=== PATIENT | female | born 1985 | race Caucasian/White ===

== ENCOUNTER 2024-08-08 23:21 | Emergency (ER) | payer OTHER, SELFPAY ==
--- NOTE | ~2024-08-08 | XR_ITS ---
CLINICAL HISTORY: chin strike after fall 5 view mandible Comparison: None Findings: No acute fractures. The temporomandibular joints are intact. No sinus fluid. Mastoids are clear. No radiopaque foreign body. IMPRESSION: 1. No acute findings This document has been electronically signed by: Kashif Boswell MD on 08/09/2024 17:32:03
--- NOTE | 2024-08-08 22:30 | PC.NURSE ---
ems did not give report to t/w client came in on gurney looking around suspiciously while speaking to ems staff and security from [facility]. patient may have had pills (#5, confirmed with security margot) which appear to be xANAX 1MG ON PERSON and some drugs with a straw which security took away client at present seated in common area
--- NOTE | 2024-08-08 22:35 | ED_ITS ---
HPI - Psych General Chief Complaint: Psychiatric Symptoms Stated Complaint: over dose, opioids narcanned Time Seen by Provider: 08/09/24 16:47 Source: EMS Mode of arrival: EMS Limitations: other History of Present Illness ED Provider: Dr. Ana Laura Latham HPI Narrative: Patient comes to the emergency room via ambulance. We did not get EMS report. All we know is that patient is ?paranoid?. Patient is very paranoid and is unable to give any history, patient is stating that she is going to , that people are watching her, afraid that somebody is going to shoot her. Patient not making much sense. Patient complaining there are 2 mm in the [facility] pod and everybody spotting on her. Patient's seems scared. Patient mentioned briefly something about using cocaine yesterday? We can not get any significant history from the patient. Related Data Home Medications ?Medication ?Instructions ?Recorded ?Confirmed buprenorphine 2 mg-naloxone 0.5 mg 0.5 film sublingual DAILY 08/09/24 08/09/24 sublingual film lorazepam 0.5 mg tablet 0.5 mg PO TID PRN Anxiety 08/09/24 08/09/24 melatonin 10 mg tablet 10 mg PO BEDTIME PRN Sleep 08/09/24 08/09/24 zolpidem 10 mg tablet 10 mg PO BEDTIME PRN Insomnia 08/09/24 08/09/24 Allergies Allergy/AdvReac Type Severity Reaction Status Date / Time medroxyprogesterone Allergy Severe UTERINE Unverified 08/08/24 23:08 [From DEPO-PROVERA] REACTION naproxen [NAPROXEN] Allergy Severe SYNCOPY Unverified 08/08/24 23:08 Review of Systems 2 Review of Systems: Clearly paranoid, looks scared, unable to give any history Yes Other PMFSH Past Medical History Medical History (Updated 08/08/24 @ 23:18 by Ana Laura Latham MD) Paranoia Physical Exam 2 Vital Signs: Vital Signs: Last Vital Signs Temp 98.1 F 08/10/24 11:56 Pulse 72 08/10/24 11:56 Resp 16 08/10/24 11:56 BP 112/63 08/10/24 11:56 Pulse Ox 98 08/10/24 11:56 O2 Del Method Room Air 08/10/24 11:56 BMI result Body Mass Index 19.1 Const: Other: Appearance: Alert. Paranoid, anxious, not answering questions Eyes: Pupils equal, round and reactive to light. ENT: Pharynx normal. Neck: Normal inspection. Neck supple. No lymph nodes noted. No crepitus CVS: Normal heart rate and rhythm. Pulses normal. Normal S1 and S2 Respiratory: No respiratory distress. Breath sounds normal. No Wheezing. No rales Abdomen: Soft and nontender. No rigidity. No distention. Skin: Skin warm and dry. Normal skin color. Normal skin turgor. Extremities: No lower extremity edema. No Lacerations. No Rash Neuro: Moving all extremities. No slurred speech. CN 2 through 12 grossly intact Psych: Very anxious, paranoid, afraid of mirrors and cameras, not answering questions, pacing Course Course Course Narrative: On arrival, patient is very paranoid, we can not get much history of her. All of patient's labs pending Care team consult pt Patient is on a Section 12 Patient was given p.o. Haldol, lorazepam and Benadryl Reevaluation(s) Reevaluation #1: Dr. Aviles: I assumed care of this patient this morning. The patient is a 39-year-old woman who had presented after erratic behavior. She apparently seemed very paranoid. She has tested positive for cocaine. She has also tested positive for buprenorphine and lorazepam but she is prescribed both of these medications. She was apparently very sleepy today. Today she is much more awake and alert. She was re-evaluated by the care team. The care team clinician feels the patient is safe for discharge. I went to see the patient. She is awake and alert. She feels that she will be safe is she is discharged. She plans on going to her mother's house today. She has a PCP in [place], Dr. Michaud and is advised to follow up with her PCP. Time: 11:42 Reevaluation #2: Urine sample was obtained, and urine culture positive, she did not receive treatment. Multiple calls were made, without any return phone calls. Certified letter was sent. Medications Administered Discontinued Medications Generic Name Dose Route Start Last Admin Trade Name [place] PRN Reason Stop Dose Admin Buprenorphine/Naloxone 0.5 film 08/10/24 09:00 08/10/24 08:41 Buprenorphine/Naloxone 2/0.5mg Film SUBLINGUAL 0.5 film DAILY RITESH Administration Diphenhydramine HCl 50 mg 08/08/24 22:32 08/08/24 22:40 Diphenhydramine Hcl 25 Mg Capsule PO 08/08/24 22:33 50 mg ONCE ONE Administration Haloperidol 5 mg 08/08/24 22:32 08/08/24 22:40 Haloperidol 5 Mg Tablet PO 08/08/24 22:33 5 mg ONCE ONE Administration Lorazepam 2 mg 08/08/24 22:32 08/08/24 22:40 Lorazepam 1 Mg Tablet PO 08/08/24 22:33 2 mg ONCE ONE Administration Potassium Chloride 60 meq 08/09/24 00:14 08/09/24 00:22 Potassium Chloride Packet 20 Meq Packet PO 08/09/24 00:15 60 meq ONCE ONE Administration Medical Decision Making Medical Decision Making [facility] Narrative: Called to patient's bedside there is potential trauma to the lower jaw. Patient fell a couple of days ago had some pain there he has been able to swallow. There is no nausea no vomiting there is no focal weakness. Patient not on blood thinners. Been able to eat her lunch trace without any difficulty. Had good opposition of her mouth. There is no malocclusion noted. Thought her risk for mandibular fracture to be exceptionally low. Nevertheless an x-ray of the mandible was ordered. Time: 16:47 Date: 08/09/24 Provider: Vini Hickey, DO Patient in physician observation for psychiatric evaluation.? VS stable.? Patient pending CARE team evaluation. Will continue to monitor. Differential Diagnosis Differential Diagnoses: The differential diagnosis associated with the presentation includes (Polysubstance abuse, alcohol intoxication, schizophrenia, bipolar disorder, paranoid) Admission/Observation Consideration of admission/observation: Escalation of care including admission/observation considered (Patient is on a Section 12 waiting to be seen by the care team to determine patient's disposition) Lab Data 08/09/24 07:55 08/09/24 07:55 Labs: Lab Results 08/08/24 08/09/24 08/09/24 Range/Units 23:33 00:05 07:55 WBC 23.7 H 16.5 H (4.8-10.8) X10*3/uL RBC 4.06 L 3.65 L (4.20-5.50) X10*6/uL Hgb 12.1 11.0 L (12.0-16.0) g/dl Hct 34.8 L 31.9 L (37.0-47.0) % MCV 85.7 87.4 (80.0-98.0) fL MCH 29.8 30.1 (27.0-33.0) pg MCHC 34.8 34.5 (31.0-35.0) g/dl RDW 12.6 12.7 (11.0-16.0) % Plt Count 270 243 (160-400) X10*3/uL MPV 9.7 9.5 (9.4-12.3) fL Immature Gran % (Auto) 1.1 H 0.8 H (0.0-0.4) % Neut % (Auto) 88.6 H 81.0 H (45-73) % Lymph % (Auto) 1.8 L 7.5 L (20-40) % [place] % (Auto) 8.1 10.4 (2-11) % Eos % (Auto) 0.2 0.1 (0-4) % Baso % (Auto) 0.2 0.2 (0-2) % Lymph # (Auto) 0.4 L 1.2 (1.2-4.9) X10*3/uL [place] # (Auto) 1.9 H 1.7 H (0.1-1.2) X10*3/uL Eos # (Auto) 0.0 0.0 (0.0-0.4) X10*3/uL Baso # (Auto) 0.0 0.0 (0.0-0.2) X10*3/uL Abs Immat Gran (auto) 0.27 H 0.13 H (0.00-0.03) X10*3/uL Absolute Neuts (auto) 21.0 H 13.4 H (2.0-8.3) x10*3/uL Absolute Nucleated RBC 0.000 0.000 (0.0-0.012) X10*3/uL Nucleated RBC % (auto) 0.0 0.0 (0.0-0.2) /100WBC Smear Tech's Comments VERIFIED VERIFIED Sodium 130 L 133 L (135-145) mmol/L Potassium 2.8 L* 3.8 D (3.3-5.1) mmol/L Chloride 93 L 98 (96-108) mmol/L Carbon Dioxide 24 29 (22-29) mmol/L Anion Gap 16 10 L (12-20) BUN 28 H 22 H (9-16) mg/dL Creatinine 1.31 0.94 (0.5-1.4) mg/dL Estim Creat Clear Calc 47.0 65.5 Estimated GFR 45 > 60 Random Glucose 171 H 112 (60-115) mg/dL Calcium 9.1 8.6 (8.4-10.2) mg/dL Total Bilirubin 0.4 (0.0-1.0) mg/dL Direct Bilirubin 0.2 (0.0-0.5) mg/dL AST 57 H (5-31) U/L ALT 33 H (0-31) U/L Alkaline Phosphatase 107 (39-117) U/L Total Protein 7.4 (6.5-8.0) g/dL Albumin 4.2 (3.5-5.0) g/dL Beta HCG, Quant < 2 mIU/mL Urine Color Yellow Urine Appearance Cloudy Urine pH 5.5 (5.0-9.0) Ur Specific Alex 1.020 (1.005-1.025) Urine Protein 300 (3+) H (Neg-Trace) mg/dL Urine Glucose (UA) Negative (Negative) mg/dL Urine Ketones Trace (Negative) mg/dL Urine Blood Moderate (2+) H (Negative) Urine Nitrite Negative (Negative) Ur Leukocyte Esterase Trace H (Negative) Urine RBC 11-20 H (0-2) /HPF Urine WBC 21-50 H (0-5) /HPF Ur Squamous Epith Cells 11-20 (0-2) /HPF Urine Bacteria 4+ (None Seen) Hyaline Casts 11-20 (0-2) /LPF Granular Casts Present Urine Opiates Screen Not Detected (Not Detect) Ur Buprenorphine Scrn Positive H (Not Detect) ng/mL Ur Oxycodone Screen Not Detected (Not Detect) ng/mL Urine Methadone Screen Not Detected (Not Detect) ng/mL Urine Fentanyl Screen Not Detected (Not Detect) Ur Barbiturates Screen Not Detected (Not Detect) Ur Phencyclidine Scrn Not Detected (Not Detect) Ur Amphetamines Screen Not Detected (Not Detect) U Benzodiazepines Scrn POSITIVE H (Not Detect) Urine Cocaine Screen POSITIVE H (Not Detect) U Marijuana (THC) Screen Not Detected (Not Detect) Ethyl Alcohol < 10 mg/dL Influenza Type A (PCR) NEGATIVE (Negative) Influenza Type B (PCR) NEGATIVE (Negative) RSV RNA Qual (PCR) NEGATIVE (Negative) SARS-CoV-2 RNA (RT-PCR) NEGATIVE (Negative) Critical Care Time Critical Care Time Critical Care Time: Yes Total Critical Care Time: 35 Attestation: I have personally provided critical care time. Time includes review of lab data, radiology results, discussion with consultants, and monitoring for potential decompensation. Intervention performed as documented. Discharge Plan Discharge Clinical Impression: Paranoia Patient Disposition: Home, Self-Care Additional Instructions: Please try to rest and take it easy for the next couple of days. Continue any of your regular medications. Please plan on following up with your regular primary care doctor. If you are feeling depressed and wished to speak to somebody confidentially you can contact the crisis hotline at [phone]. Return to the emergency room if you feel significantly worse. Prescriptions: No Action lorazepam 0.5 mg tablet 0.5 mg PO TID PRN (Reason: Anxiety) zolpidem 10 mg tablet 10 mg PO BEDTIME PRN (Reason: Insomnia) buprenorphine-naloxone 2-0.5 mg film 0.5 film sublingual DAILY melatonin 10 mg Tablet 10 mg PO BEDTIME PRN (Reason: Sleep) Rx Instructions: Take only if Zolpidem not effective. Referrals: Raghavendra Villanueva MD [Primary Care Provider] - Interventions: [place]-Suicide Risk Severity Scale Last Done: 08/09/24 22:50 ED Discharge Assessment Last Done: 08/10/24 11:56 Discharge Date/Time: 08/10/24 11:56 Print Language: Prydeinig
[2024-08-08] MEDS: LORazepam 1 MG TABLET 2 MG PO (22:40)
[2024-08-08] MEDS: HaloperidoL 5 MG TABLET PO (22:40)
[2024-08-08] MEDS: diphenhydrAMINE HCL 25 MG CAPSULE 50 MG PO (22:40)
[2024-08-08 22:50] VITALS: BP 153/94; PULSE 112; O2SAT 97
--- NOTE | 2024-08-08 22:51 | PC.NURSE ---
about 2229 [facility] ems returned call and police were called to [place] client at 's house seemingly voluntary to come here client not acting normal saying she used cocaines yesterday not to day client seemed to have drugs on her person and medications which are unconfirmed to be xanax 1mg at present, patient once changed over seated in common area thinking the bubbles (mirrored areas) are seemingly dnagerous, patient had made statements about snipers patient was slow to take medications from t/w but did do so, as she told provider she had not slept in days.
[2024-08-08 23:07] VITALS: BP 144/93; PULSE 143; RESP 18; TEMP 37.9; O2SAT 99; BMI 19.1
--- NOTE | 2024-08-08 23:26 | PC.NURSE ---
patient mentioned injury on chin, t/w offered ice pack which was declined
[2024-08-08 23:48] LABS: Basophils Percent Auto 0.2 % (0-2); Eosinophils Percent Auto 0.2 % (0-4); Hematocrit 34.8 % (37.0-47.0); Hemoglobin 12.1 g/dl (12.0-16.0); Imm Gran Abs Auto 0.27 X10*3/uL (0.00-0.03); Imm Gran Pct Auto 1.1 % (0.0-0.4); Lymphocytes Absolute Auto 0.4 X10*3/uL (1.2-4.9); Lymphocytes Percent Auto 1.8 % (20-40); MANUAL DIFF FLAG SCAN; Mean Corpuscular HGB Conc 34.8 g/dl (31.0-35.0); Mean Corpuscular Hemoglobin 29.8 pg (27.0-33.0); Mean Corpuscular Volume 85.7 fL (80.0-98.0); Mean Platelet Volume 9.7 fL (9.4-12.3); Monocytes Absolute Auto 1.9 X10*3/uL (0.1-1.2); Monocytes Percent Auto 8.1 % (2-11); Neutrophils Percent Auto 88.6 % (45-73); Platelet Count 270 X10*3/uL (160-400); Red Blood Count 4.06 X10*6/uL (4.20-5.50); Red Cell Distribution Width 12.6 % (11.0-16.0); SCAN SMEAR FLAG 1; White Blood Count 23.7 X10*3/uL (4.8-10.8)
[2024-08-09 00:06] LABS: SLIDE REVIEW VERIFIED
--- NOTE | 2024-08-09 00:13 | PC.NURSE ---
eliceo Story reported to me from lab 2.8, tigered provider
[2024-08-09 00:14] LABS: Alanine Aminotransferase 33 U/L (0-31); Albumin Level 4.2 g/dL (3.5-5.0); Alkaline Phosphatase 107 U/L (39-117); Anion Gap 16 (12-20); Aspartate Amino Transferase 57 U/L (5-31); Bilirubin Direct 0.2 mg/dL (0.0-0.5); Bilirubin Total 0.4 mg/dL (0.0-1.0); Blood Urea Nitrogen 28 mg/dL (9-16); Calcium 9.1 mg/dL (8.4-10.2); Carbon Dioxide 24 mmol/L (22-29); Chloride 93 mmol/L (96-108); Estimated Glomerular Filt Rate 45; Ethanol < 10 mg/dL; Glucose Random 171 mg/dL (60-115); HCG Quantitative < 2 mIU/mL; Potassium 2.8 mmol/L (3.3-5.1); Sodium 130 mmol/L (135-145); Total Protein 7.4 g/dL (6.5-8.0)
[2024-08-09 00:19] VITALS: BP 119/86; PULSE 98; RESP 17; TEMP 37.2; O2SAT 98
[2024-08-09] MEDS: Potassium Chloride Packet 20 MEQ PACKET 60 MEQ PO (00:22)
[2024-08-09 00:29] LABS: Amphetamine Screen Urine Not Detected (Not Detect); Barbiturates, Urine Not Detected (Not Detect); Benzodiazepines Screen Urine POSITIVE (Not Detect); Buprenorphine Scr Positive (Not Detect); Cannabinoid Screen Urine Not Detected (Not Detect); Cocaine Screen Urine POSITIVE (Not Detect); Fentanyl, urine Not Detected (Not Detect); Methadone Screen, Urine Not Detected (Not Detect); Opiate Screen Urine Not Detected (Not Detect); Oxycodone Screen Urine Not Detected (Not Detect); Phencyclidine Screen Urine Not Detected (Not Detect)
--- NOTE | 2024-08-09 00:52 | MHC.CARE ---
Attempted to evaluate patient who was present in the pod in the back. Her speech is mumbled, she is unable to participate in evaluation at this time. Patient medicated roughly 2 hours ago. She is unable to keep her head up, nodding off, eyes closed. Will make additional attempt in a few hours.
[2024-08-09 01:45] LABS: Appearance Urine Cloudy; Color Urine Yellow; Glucose Urine UA Negative (Negative); Leukocyte Esterase Urine Trace (Negative); Nitrite Urine Negative (Negative); PH 5.5 (5.0-9.0); UMIC TRIGGER UACC YES; Urine Blood Moderate (2+) (Negative); Urine Ketones Trace mg/dL (Negative); Urine Protein 300 (3+) mg/dL (Neg-Trace)
--- NOTE | 2024-08-09 01:51 | PC.NURSE ---
security retreived contraband tablets patient had in bra
[2024-08-09 02:00] LABS: Bacteria Urine 4+ (None Seen); Granular Casts Urine Present; UACC Culture Trigger YES; WBC Urine 21-50 /HPF (0-5)
--- NOTE | 2024-08-09 06:06 | PC.NURSE ---
sent msg via tiger re: home meds
--- NOTE | 2024-08-09 07:09 | PC.NURSE ---
assumed care of pt approx 0700, pt resting comfortably on couch with no apparent s/s of distress. Awaiting to be seen by provider.
[2024-08-09 07:42] VITALS: BP 98/56; PULSE 86; RESP 14; TEMP 37; O2SAT 95
[2024-08-09 08:03] LABS: Basophils Percent Auto 0.2 % (0-2); Eosinophils Percent Auto 0.1 % (0-4); Imm Gran Abs Auto 0.13 X10*3/uL (0.00-0.03); Imm Gran Pct Auto 0.8 % (0.0-0.4); Lymphocytes Absolute Auto 1.2 X10*3/uL (1.2-4.9); Lymphocytes Percent Auto 7.5 % (20-40); MANUAL DIFF FLAG SCAN; Mean Corpuscular HGB Conc 34.5 g/dl (31.0-35.0); Mean Corpuscular Hemoglobin 30.1 pg (27.0-33.0); Mean Corpuscular Volume 87.4 fL (80.0-98.0); Mean Platelet Volume 9.5 fL (9.4-12.3); Monocytes Absolute Auto 1.7 X10*3/uL (0.1-1.2); Monocytes Percent Auto 10.4 % (2-11); Neutrophils Absolute Auto 13.4 x10*3/uL (2.0-8.3); Platelet Count 243 X10*3/uL (160-400); Red Blood Count 3.65 X10*6/uL (4.20-5.50); Red Cell Distribution Width 12.7 % (11.0-16.0); SCAN SMEAR FLAG 1; White Blood Count 16.5 X10*3/uL (4.8-10.8)
[2024-08-09 08:04] LABS: Hematocrit 31.9 % (37.0-47.0)
[2024-08-09 08:24] LABS: Anion Gap 10 (12-20); Blood Urea Nitrogen 22 mg/dL (9-16); Calcium 8.6 mg/dL (8.4-10.2); Carbon Dioxide 29 mmol/L (22-29); Chloride 98 mmol/L (96-108); Creatinine Clr Calc Pharmacy 65.5; Estimated Glomerular Filt Rate > 60; Glucose Random 112 mg/dL (60-115); Potassium 3.8 mmol/L (3.3-5.1); Sodium 133 mmol/L (135-145)
[2024-08-09 08:38] LABS: SLIDE REVIEW VERIFIED
[2024-08-09 08:41] LABS: Influenza A PCR NEGATIVE (Negative); Influenza B PCR NEGATIVE (Negative); Resp Syncy Virus RNA Qual PCR NEGATIVE (Negative); SARS COV2 PCR INHOUSE NEGATIVE (Negative)
--- NOTE | 2024-08-09 11:16 | MHC.CARE ---
This functional tester typewriters has attempted to assess pt twice, she continues to struggle to participate, presents as very somnolent, mumbled speech, trailing off. Eyes not opened at any point. T/w to continue to reach out to collaterals.
--- NOTE | 2024-08-09 13:54 | PC.NURSE ---
Pt awoke with c/o pain to chin, and difficulty chewing sandwich. Bruising to chin noted. MD Lowry notified.
[2024-08-09 14:48] VITALS: BP 101/55; PULSE 81; RESP 14; TEMP 37.8; O2SAT 97
[2024-08-09 15:27] VITALS: TEMP 37.8
--- NOTE | 2024-08-09 15:44 | MHC.CARE ---
Following discussion to with attending MD Lowry, patient to remain in the ED for further observation/ follow up with CARE team.
--- NOTE | 2024-08-09 19:09 | PHA.MEDREC ---
Addendum entered by Hasmukh [facility] 08/09/24 20:32: med rec reviewed Original Note: Pharmacy Consult ? Medication Reconciliation Pharmacy has completed the medication reconciliation. Spoke with pt and she confirmed her medications. Pt states she has not been able to take any of her medications in a few days (2-3 days).
--- NOTE | 2024-08-09 19:36 | PC.NURSE ---
Assumed care of patient at 1845, patient appears to be sleeping, respirations even and unlabored. no apparent distress noted. Continue plan of care for CARE team follow up
[2024-08-09 20:58] VITALS: BP 121/68; PULSE 71; RESP 16; TEMP 37.1; O2SAT 99
--- NOTE | 2024-08-09 22:50 | PC.NURSE ---
pt on phone speaking with
--- NOTE | 2024-08-09 23:16 | PC.NURSE ---
Report received and care assumed. Pt appears to be resting comfortably in stretcher without distress or identifiable needs noted.
--- NOTE | 2024-08-10 01:05 | PC.NURSE ---
Phone call received from patient's MALOU who was looking for an update. she was made aware that the patient is currently sleeping and that this RN could pass along the message for the pt to call/check in in the AM as phones are currently off, family agreeable. Expressing concerns surrounding next steps and whether or not contact/updates will be provided by healthcare team regarding plan of care/next steps. MALOU reports patient's mom Grisel is the closest to her and may be a good photoresist contact printer if necessary for additional information. Mom (Grisel [place]) [phone] Emily (MALOU, Brother Vern's ) [phone]
--- NOTE | 2024-08-10 06:11 | PC.NURSE ---
Pt continues to rest comfortably in her room/bed without issue or distress noted.
[2024-08-10 06:48] VITALS: BP 101/60; PULSE 70; RESP 15; TEMP 36.9; O2SAT 98
--- NOTE | 2024-08-10 07:22 | PC.NURSE ---
patient currently sleeping, rr equal/non labored, rr 16, breakfast tray brought into room, pt will be medicated upon waking, plan of care ongoing
[2024-08-10] MEDS: Buprenorphine/Naloxone 2/0.5mg FILM 0.5 FILM SUBLINGUAL (08:41)
--- NOTE | 2024-08-10 10:42 | PC.NURSE ---
patient denies SI/HI at this time.
[2024-08-10 11:56] VITALS: BP 112/63; PULSE 72; RESP 16; TEMP 36.7; O2SAT 98
== END 2024-08-10 11:56 | disposition home or self-care (01) ==
PROVIDERS: Emergency Medicine; Emergency Provider Emergency Medicine; PCP Internal Medicine
DX: F22 Delusional disorders (principal); Z03.818 Encounter for observation for suspected exposure to other biological agents ruled out; Z79.899 Other long term (current) drug therapy
CPT/HCPCS: 0241U; 36415; 70110; 80048; 80076; 80307; 81001; 84702; 85025; 87086; 87088; 87186; 99285; S9485

== ENCOUNTER → 2024-08-09 16:35 | Outpatient (BNV) | payer OTHER, SELFPAY | PROVIDERS: Emergency Provider Emergency Medicine; PCP Internal Medicine; Visit Provider Nuclear Medicine | DX: S01.80XA Unspecified open wound of other part of head, initial encounter (principal); W19.XXXA Unspecified fall, initial encounter | CPT/HCPCS: 70110 ==